=== PATIENT | female | born 1980 | race Caucasian/White ===

== ENCOUNTER 2019-03-08 10:08 | Emergency (ER) | payer BC ==
--- NOTE | 2019-03-08 11:02 | ER Document Report ---
ED Medical Screen (RME) - General Chief Complaint: Nausea/Vomiting/Diarrhea Stated Complaint: VOMITING Time Seen by Provider: 03/08/19 10:56 Primary Care Provider: JOSE MARIA FITZPATRICK [Primary Care Provider] - Follow up as needed Mode of Arrival: Ambulatory Information source: Patient Notes: Patient presents emergency department with complaints of lower left-sided abdominal pain mid abdominal pain. Reports history of diverticulitis. Reports her abdomen was really hurting last week but it subsided and today had increased flare. Reports she has a history of diverticulitis and has been admitted for this. Reports she is still nauseated but declines any kind antinausea medicine because she has not eaten this morning. Denies pain with void. Denies fever. Reports last bowel movement this a.m. left Lower quad tender to palpation I have greeted and performed a rapid initial assessment of this patient. A comprehensive ED assessment and evaluation of the patient, analysis of test results and completion of the medical decision making process will be conducted by additional ED providers. Dictation of this chart was performed using voice recognition software; the refore, there may be some unintended grammatical errors. TRAVEL OUTSIDE OF THE [place] IN LAST 30 DAYS: No - Related Data Allergies/Adverse Reactions: gluten Allergy (Verified 03/08/19 10:11) wheat Allergy (Verified 03/08/19 10:11) Past Medical History - Social History Chew tobacco use (# tins/day): No Frequency of alcohol use: Occasional Drug Abuse: None Renal/ Medical History: Denies: Hx Peritoneal Dialysis Past Surgical History: Reports: Hx Oral Surgery Physical Exam - Vital signs Vitals: Temp Pulse Resp BP Pulse Ox 98.0 F 99 16 145/93 H 96 03/08/19 10:14 03/08/19 10:14 03/08/19 10:14 03/08/19 10:14 03/08/19 10:14 Course - Vital Signs Vital signs: Temp Pulse Resp BP Pulse Ox 98.0 F 99 16 145/93 H 96 03/08/19 10:14 03/08/19 10:14 03/08/19 10:14 03/08/19 10:14 03/08/19 10:14 Doctor's Discharge - Discharge Referrals: JOSE MARIA FITZPATRICK [Primary Care Provider] - Follow up as needed
--- NOTE | 2019-03-08 11:30 | ER Document Report ---
ED General - General Chief Complaint: Nausea/Vomiting/Diarrhea Stated Complaint: VOMITING Time Seen by Provider: 03/08/19 10:56 Primary Care Provider: AR HESS MD [ACTIVE STAFF] - Follow up in 3-5 days Mode of Arrival: Ambulatory TRAVEL OUTSIDE OF THE [place] IN LAST 30 DAYS: No - HPI Notes: 39-year-old female to the emergency department with complaints of left lower quadrant pain that has been ongoing for 1 week. Her pain did get a little bit better and now it is got started to get worse. Has had subjective fevers and chills at home. Denies diarrhea or blood in her stool. Admits to nausea and vomiting that started yesterday. She has had one episode of vomiting today. States she has a history of diverticulitis. She has had a colonoscopy in the past but has never been admitted inpatient for treatment of her diverticulitis. States this pain is similar to prior episodes of diverticulitis. - Related Data Allergies/Adverse Reactions: gluten Allergy (Verified 03/08/19 10:11) wheat Allergy (Verified 03/08/19 10:11) Past Medical History - General Information source: Patient - Social History Smoking Status: Never Smoker Chew tobacco use (# tins/day): No Frequency of alcohol use: Occasional Drug Abuse: None Lives with: Spouse/Significant other Family History: Reviewed & Not Pertinent Patient has suicidal ideation: No Patient has homicidal ideation: No - Past Medical History Cardiac Medical History: Denies: Hx Hypertension Renal/ Medical History: Denies: Hx Peritoneal Dialysis GI Medical History: Reports: Hx Diverticulitis Past Surgical History: Reports: Hx Oral Surgery Review of Systems - Review of Systems Constitutional: Chills, Fever EENT: No symptoms reported Cardiovascular: denies: Chest pain, Palpitations, Syncope, Dizziness, Lightheaded Respiratory: denies: Cough, Short of breath Gastrointestinal: Abdominal pain, Nausea, Vomiting. denies: Diarrhea Genitourinary: denies: Frequency, Flank pain, Hematuria, Incontinence Female Genitourinary: No symptoms reported Musculoskeletal: No symptoms reported Skin: No symptoms reported Neurological/Psychological: No symptoms reported -: Yes All other systems reviewed and negative Physical Exam - Vital signs Vitals: Temp Pulse Resp BP Pulse Ox 98.0 F 99 16 145/93 H 96 03/08/19 10:14 03/08/19 10:14 03/08/19 10:14 03/08/19 10:14 03/08/19 10:14 Interpretation: Normal - General In distress: None - HEENT Head: Normocephalic, Atraumatic Eyes: Normal Pupils: PERRL - Respiratory Respiratory status: No respiratory distress Chest status: Nontender Breath sounds: Normal. No: Rales, Rhonchi, Wheezing Chest palpation: Normal - Cardiovascular Rhythm: Regular Heart sounds: Normal auscultation Murmur: No - Abdominal Inspection: Normal Distension: No distension, Other - Positive obesity Bowel sounds: Normal Tenderness: Tender - Tenderness to palpation over the left lower quadrant with no rebound or guarding. Organomegaly: No organomegaly - Back Back: Normal - Extremities General upper extremity: Normal inspection, Nontender, Normal color, Normal ROM, Normal temperature General lower extremity: Normal inspection, Nontender, Normal color, Normal ROM, Normal temperature, Normal weight bearing. No: Quin's sign - Neurological Neuro grossly intact: Yes Cognition: Normal Orientation: AAOx4 Ryann Coma Scale Eye Opening: Spontaneous [place] Coma Scale Verbal: Oriented Ryann Coma Scale Motor: Obeys Commands Ryann Coma Scale Total: 15 Speech: Normal - Psychological Associated symptoms: Normal affect, Normal mood - Skin Skin Temperature: Warm Skin Moisture: Dry Skin Color: Normal Course - Vital Signs Vital signs: Temp Pulse Resp BP Pulse Ox 98.0 F 90 16 131/96 H 100 03/08/19 10:14 03/08/19 15:09 03/08/19 15:09 03/08/19 15:09 03/08/19 15:09 - Laboratory Result Diagrams: 03/08/19 11:00 03/08/19 11:00 Laboratory results interpreted by me: 03/08/19 03/08/19 11:00 11:00 WBC 15.7 H Absolute Neutrophils 11.2 H Urine Ketones 20 H - Transfer of Care Notes: 03/08/19 13:43 Impression: Diverticulitis, with no abscess or perforation. Noted leukocytosis, Stable vital signs. Patient is feeling better after medicines and she agrees with the plan for discharge with Flagyl/Cipro, pain meds, zofran. Will have her follow with PCP here. Encouraged her to return if worse with intractable vomiting, intractable pain, fevers, or any other concerning symptoms. Discharge - Discharge Clinical Impression: Diverticulitis large intestine w/o perforation or abscess w/o bleeding Condition: Stable Disposition: HOME, SELF-CARE Instructions: Diverticulitis (OM) Additional Instructions: COMPLETE ALL ANTIBIOTICS. RETURN IF WORSE -- WITH WORSENING PAIN, FEVERS, INTRACTABLE VOMITING. FOLLOW UP WITH PRIMARY CARE. Prescriptions: Ciprofloxacin HCl [Cipro 500 mg Tablet] 500 mg PO BID 10 Days #20 tablet Docusate Sodium [Colace 100 mg Capsule] 100 mg PO BID #30 capsule Metronidazole [Flagyl 500 mg Tablet] 500 mg PO TID 10 Days #30 tablet Ondansetron [Zofran Odt 4 mg Tablet] 1 - 2 tab PO Q8H PRN #20 tab.rapdis PRN Reason: Oxycodone HCl/Acetaminophen [Percocet 5-325 mg Tablet] 1 tab PO Q6H PRN #15 tab PRN Reason: Referrals: AR HESS MD [ACTIVE STAFF] - Follow up in 3-5 days
[2019-03-08 11:35] LABS: ABSOLUTE BASOPHILS # (AUTO) 0.1 10^3/uL (0.0-0.2); ABSOLUTE EOSINOPHILS # (AUTO) 0.2 10^3/uL (0.0-0.6); ABSOLUTE LYMPHOCYTES (AUTO) 3.1 10^3/uL (0.5-4.7); ABSOLUTE MONOCYTES (AUTO) 1.1 10^3/uL (0.1-1.4); ABSOLUTE NEUT (AUTO) 11.2 10^3/uL (1.7-8.2); BASOPHILS % (AUTO) 0.6 % (0-2); EOSINOPHILS % (AUTO) 1.3 % (0-6); HEMATOCRIT 40.7 % (36.0-47.0); HEMOGLOBIN 13.8 g/dL (12.0-15.5); LYMPHOCYTES % (AUTO) 19.7 % (13-45); MEAN CORPUSCULAR HEMOGLOBIN 28.6 pg (27.0-33.4); MEAN CORPUSCULAR HGB CONC 33.9 g/dL (32.0-36.0); MEAN CORPUSCULAR VOLUME 84 fl (80-97); MONOCYTES % (AUTO) 6.9 % (3-13); PLATELET COUNT 350 10^3/uL (150-450); RED BLOOD COUNT 4.83 10^6/uL (3.72-5.28); RED CELL DISTRIBUTION WIDTH 12.1 % (11.5-14.0); SEGMENTED NEUTROPHILS % (AUTO) 71.5 % (42-78); TOTAL CELLS COUNTED % (AUTO) 100 %; WHITE BLOOD COUNT 15.7 10^3/uL (4.0-10.5)
[2019-03-08 11:54] LABS: ALANINE AMINOTRANSFERASE 29 U/L (9-52); ALBUMIN 4.6 g/dL (3.5-5.0); ALKALINE PHOSPHATASE 51 U/L (38-126); ANION GAP 10 (5-19); ASPARTATE AMINO TRANSFERASE 23 U/L (14-36); BILIRUBIN,DIRECT 0.2 mg/dL (0.0-0.4); BLOOD UREA NITROGEN 10 mg/dL (7-20); CALCIUM 10.2 mg/dL (8.4-10.2); CARBON DIOXIDE 26 mmol/L (22-30); CHLORIDE 102 mmol/L (98-107); GLUCOSE 107 mg/dL (75-110); POTASSIUM 4.6 mmol/L (3.6-5.0); SODIUM 138.3 mmol/L (137-145); TOTAL PROTEIN 7.9 g/dL (6.3-8.2)
[2019-03-08 11:57] LABS: APPEARANCE,URINE SLIGHTLY-CLOUDY; BILIRUBIN,URINE NEGATIVE (NEGATIVE); COLOR,URINE YELLOW; GLUCOSE, URINE NEGATIVE (NEGATIVE); KETONES,URINE 20 mg/dL (NEGATIVE); LEUKOCYTE ESTERASE,URINE NEGATIVE (NEGATIVE); NITRITE,URINE NEGATIVE (NEGATIVE); PROTEIN,URINE NEGATIVE (NEGATIVE); URINE SPECIFIC GRAVITY 1.019; UROBILINOGEN,URINE NEGATIVE mg/dL (<2.0)
[2019-03-08] MEDS ORDERED: MORPHINE SULFATE 10 MG/ML INJ IV ONE (12:25)
[2019-03-08] MEDS ORDERED: NORMAL SALINE 1000 ML 1,000 ML IV ONE (12:25)
[2019-03-08] MEDS ORDERED: ONDANSETRON HCL INJ/PF 4 MG/2 ML SDV IV ONE (12:25)
--- NOTE | 2019-03-08 12:37 | RADIOLOGY REPORT (SQ) ---
EXAM DESCRIPTION: CT ABD/PELVIS WITH IV ONLY COMPLETED DATE/TIME: 03/08/2019 12:12 pm REASON FOR STUDY: abd pain hx diverticulitis COMPARISON: None. TECHNIQUE: CT scan of the abdomen and pelvis performed using helical scanning technique with dynamic intravenous contrast injection. No oral contrast. Images reviewed with lung, soft tissue, and bone windows. Reconstructed coronal and sagittal MPR images reviewed. Delayed images for evaluation of the urinary system also acquired. All images stored on PACS. All CT scanners at this facility use dose modulation, iterative reconstruction, and/or weight based d osing when appropriate to reduce radiation dose to as low as reasonably achievable (ALARA). [facility]: Dose Right [facility]: CareDose [facility]: Dose Right [facility]: Teradose 4D [facility]: LED Optics CONTRAST TYPE AND DOSE: 80 mL of IV Omnipaque 350- low osmolar. RENAL FUNCTION: None required. The patient is less than 50 years old. RADIATION DOSE: CT Rad equipment meets quality standard of care and radiation dose reduction techniq ues were employed. CTDIvol: 18.6 mGy. DLP: 1046 mGy-cm.. LIMITATIONS: None. FINDINGS: On coronal reconstruction images 47 through 60, a 7 cm long segment of colon wall thickeni ng and luminal narrowing is present with surrounding inflammation in the adjacent pericolic fat. The re is trace adjacent free fluid extending into the right adnexa and pelvic cul-de-sac without free in traperitoneal air. No well circumscribed abscess. Findings most likely represent acute diverticulit is. Remainder of the gastrointestinal tract is otherwise unremarkable. No bowel obstruction. Moderate c olonic diverticulosis elsewhere throughout the colon. LOWER CHEST: No significant findings. No nodules or infiltrates. LIVER: Normal size. No masses. No dilated ducts. SPLEEN: Normal size. No focal lesions. PANCREAS: No masses. No significant calcifications. No adjacent inflammation or peripancreatic fluid collections. Pancreatic duct not dilated. GALLBLADDER: No identified stones by CT criteria. No inflammatory changes to suggest cholecystitis. ADRENAL GLANDS: No significant masses or asymmetry. RIGHT KIDNEY AND URETER: No solid masses. No significant calcifications. No hydronephrosis or hyd roureter. LEFT KIDNEY AND URETER: No solid masses. No significant calcifications. No hydronephrosis or hydr oureter. AORTA AND VESSELS: No aneurysm. No dissection. Renal arteries, SMA, celiac without stenosis. RETROPERITONEUM: No retroperitoneal adenopathy, hemorrhage or masses. BOWEL AND PERITONEAL CAVITY: As above APPENDIX: Normal. PELVIS: No mass. Small amount of right adnexal and pelvic cul-de-sac fluid. Normal bladder. Normal size female pelvic organs ABDOMINAL WALL: No masses. No hernias. BONES: No significant or acute findings. OTHER: No other significant finding. IMPRESSION: Distal sigmoid colon diverticulitis. Moderate burden diverticulosis throughout the remainder the colon. TECHNICAL DOCUMENTATION: JOB ID: [id number] Quality ID # [id number]: Final reports with documentation of one or more dose reduction techniques (e.g., Au tomated exposure control, adjustment of the mA and/or kV according to patient size, use of iterative reconstruction technique) 2010 [employer]- All Rights Reserved Reading location - IP/workstation name: [email or web address]
[2019-03-08 15:10] VITALS: BP 131/96
== END 2019-03-08 15:10 | disposition home or self-care (01) ==
LOC: ER 10:08
DX: K57.32 Diverticulitis of large intestine without perforation or abscess without bleeding (principal); R11.2 Nausea with vomiting, unspecified; R19.7 Diarrhea, unspecified; R10.32 Left lower quadrant pain; Z91.018 Allergy to other foods
CPT/HCPCS: 99284; 96361; 96374; 96375; 36415; 84703; 85025; 80053; 81001; 74177; J2270; J2405; J7030